=== PATIENT | male | born 1980 | race Caucasian/White ===

== ENCOUNTER 2024-03-29 15:36 | Emergency (ER) | payer SELFPAY ==
[~2024-03-29] VITALS: Ht 177.8 cm; Wt 99.1 kg
[2024-03-29 15:56] VITALS: BP 161/94; PULSE 84; TEMP 98; O2SAT 99
[2024-03-29 17:19] LABS: BASOPHILS # (AUTO) 0.1 X10'3 (0-0.2); BASOPHILS % (AUTO) 1.1 % (0-1); EOSINOPHILS # (AUTO) 0.2 X10'3 (0-0.9); EOSINOPHILS % (AUTO) 1.9 % (0-6); HEMATOCRIT 35.8 % (42.0-52.0); HEMOGLOBIN 11.3 g/dl (14.0-17.9); MEAN CORPUSCULAR HEMOGLOBIN 20.4 PG (27.0-31.0); MEAN CORPUSCULAR HGB CONC 31.4 g/dL (33.0-36.5); MEAN CORPUSCULAR VOLUME 64.8 FL (78-98); MEAN PLATELET VOLUME 8.7 FL (7.4-10.4); MONOCYTES # (AUTO) 1.1 X10'3 (0-0.9); MONOCYTES % (AUTO) 9.7 % (2-12); NEUTROPHILS # (AUTO) 7.7 X10'3 (1.8-7.7); NEUTROPHILS % (AUTO) 69.3 % (42-75); PLATELET COUNT 279 X10'3 (140-440); RED BLOOD COUNT 5.53 X10'6 (4.70-6.10); RED CELL DISTRIBUTION WIDTH 16.9 % (11.5-14.5)
[2024-03-29 17:30] LABS: APTT 27 SECONDS (22-32); PROTHROMBIN TIME 10.7 SECONDS (9.0-12.0)
[2024-03-29 17:36] LABS: ALANINE AMINOTRANSFERASE 52 U/L (12-78); ALBUMIN 4.1 G/DL (3.4-5.0); ALKALINE PHOSPHATASE 91 IU/L (46-116); ANION GAP 8 (8-16); ASPARTATE AMINO TRANSFERASE 22 U/L (10-37); BILIRUBIN,TOTAL 0.3 MG/DL (0.1-1.0); BLOOD UREA NITROGEN 16 MG/DL (7-18); BUN/CREATININE RATIO 16.5 (10.0-20.0); CALCIUM 9.1 MG/DL (8.5-10.1); CHLORIDE 100 MMOL/L (99-107); CREATININE 0.97 MG/DL (0.60-1.10); GLUCOSE 122 MG/DL (70-104); LIPASE 47 U/L (16-77); POTASSIUM 4.2 MMOL/L (3.5-5.1); SODIUM 137 MMOL/L (135-145); TOTAL CARBON DIOXIDE 28.6 MMOL/L (24-32); TOTAL PROTEIN 8.3 G/DL (6.4-8.2); eCRCL 100 ML/MIN; eGFR 84 ML/MIN
[2024-03-29 17:41] LABS: PLATELET ESTIMATE NORMAL
[2024-03-29 17:43] LABS: ANISOCYTOSIS 1+; ELLIPTOCYTES 1+; HYPOCHROMASIA 2+; MICROCYTOSIS 2+; TEAR DROP CELLS FEW
[2024-03-29] MEDS: LIDOcaine 1% W/epiNEPHrine 1:100,000 20ml vial SQ ONE (19:16)
[2024-03-29] MEDS: LIDOcaine/epinephrine/tetracaine TOPICAL sol 3 ML syringe TOP ONE (19:17)
[2024-03-29] MEDS ORDERED: METR-159 PO (19:36)
[2024-03-29] MEDS ORDERED: SULF1TAB49 PO (19:36)
[2024-03-29 20:16] VITALS: RESP 16
== END 2024-03-29 19:47 | disposition home or self-care (01) ==
LOC: ER 15:37
DX: K64.9 Unspecified hemorrhoids (principal)
CPT/HCPCS: 36415; 46083; 80053; 83690; 85008; 85025; 85610; 85730; 99284; J3490; 10060; 99282; 99283; A6449

== ENCOUNTER 2024-07-15 13:21 | Outpatient (CLI) | payer SELFPAY ==
--- NOTE | 2024-07-15 15:38 | RADIOLOGY REPORT ---
EXAM: MR MRI LOWER EXTREMITY RIGHT HISTORY: INTERNAL DERANGEMENT OF RIGHT KNEE COMPARISON: None TECHNIQUE: Multiplanar, multisequence MRI was performed. FINDINGS: Complex tear in the posterior half of the medial meniscus abutting the free edge of the meniscus The lateral meniscus is intact. The cruciate ligaments are intact The collateral ligaments are intact Quadriceps and patellar tendons are intact Small joint effusion Hyaline cartilage surfaces covering the patellofemoral joint are smooth IMPRESSION: 1. Complex tear involving the posterior half of the medial meniscus abutting the free edge of the men iscus
== END 2024-07-15 23:59 | disposition home or self-care (01) ==
LOC: MRI 13:21
PROVIDERS: ATTEND Emergency Medicine
DX: S83.231A Complex tear of medial meniscus, current injury, right knee, initial encounter (principal); M23.91 Unspecified internal derangement of right knee; J34.2 Deviated nasal septum; X58.XXXA Exposure to other specified factors, initial encounter; Y93.9 Activity, unspecified; Y92.89 Other specified places as the place of occurrence of the external cause; Y99.8 Other external cause status
CPT/HCPCS: 73721